=== PATIENT | female | born 1955 | race African-American/Black ===

== ENCOUNTER 2017-09-19 00:36 | Inpatient (IN) | payer OTHER ==
[2017-09-19 01:04] LABS: #Lymphocytes 1.4 thou/uL (1.20-3.40); #Monocytes 0.2 thou/uL (0.11-0.59); #Neutrophils 9.7 thou/uL (1.40-6.50); %Basophils 0.3 % (0.0-1.0); %Eosinophils 0.3 % (0.0-10.0); %Lymphocytes 12.1 % (21.0-51.0); %Monocytes 1.9 % (0.0-10.0); %Neutrophils 85.4 % (42.0-75.0); Hemoglobin 13.7 g/dL (12.0-16.0); Mean Corpuscular HGB CONC 32.6 g/dL (32.0-36.0); Mean Corpuscular Hemoglobin 28.4 pg (27.0-31.0); Mean Corpuscular Volume 87.1 fl (81.0-99.0); Platelet Count 229 thou/uL (130-400); RBC Distribution Width 11.7 % (11.5-14.5); Red Blood Cell (RBC) Count 4.83 mill/uL (4.20-5.40); White Blood Cell (WBC) Count 11.4 thou/uL (4.8-10.8)
[2017-09-19] MEDS ORDERED: Acetaminophen 325 MG Suppository ONE (01:05)
[2017-09-19] MEDS ORDERED: Acetaminophen 650 MG Suppository ONE (01:05)
[2017-09-19 01:08] LABS: Bilirubin Negative (Negative); Blood, Urine Negative (Negative); Clarity CLEAR (Clear); Glucose, Urine (Dipstick) >=1000 mg/dL (Negative); Leukocyte Negative (Negative); Nitrite Negative (Negative); Protein, Urine (Dipstick) Negative (Neg-Trace); Specific Gravity, Urine 1.036 (1.002-1.036); Urobilinogen 0.2 mg/dL (0.2-1.0)
[2017-09-19 01:17] LABS: Amphetamine Not Detected (NotDetected); Benzodiazepine Screen Not Detected (NotDetected); Cocaine Metabolite Screen Not Detected (NotDetected); Medtox Reader # READER 4; Methamphetamine Not Detected (NotDetected); Opiate Screen Not Detected (NotDetected); Phencyclidine (PCP) Not Detected (NotDetected); THC/Cannabinoid Screen Not Detected (NotDetected); Tricyclic Screen Not Detected (NotDetected)
[2017-09-19 01:18] LABS: Barbiturates Screen Not Detected (NotDetected); Medtox Control Line Valid? VALID (VALID); Methadone Not Detected (NotDetected); Oxycodone Screen Not Detected (NotDetected)
[2017-09-19 01:29] LABS: CKMB 0.5 ng/mL (0-6.6); Troponin I Less than 0.010 ng/mL (< 0.028)
[2017-09-19 01:35] LABS: ALT (SGPT) 19 U/L (8-55); AST (SGOT) 23 U/L (5-34); Albumin 4.3 g/dL (3.4-4.8); Alkaline Phosphatase 136 U/L (40-150); Anion Gap 20 mmol/L (10-20); BUN (Urea Nitrogen) 5 mg/dL (9.8-20.1); Bilirubin, Total 0.5 mg/dL (0.2-1.2); CK (CPK) 103 U/L (29-168); Calc. Creatinine Clearance 0 mL/min (70-130); Calcium 10.1 mg/dL (7.8-10.44); Carbon Dioxide 24 mmol/L (23-31); Chloride 95 mmol/L (98-107); Estimated GFR-MDRD 54; Globulin 3.9 g/dL (2.4-3.5); Glucose 595 mg/dL (80-115); Potassium 5.2 mmol/L (3.5-5.1); Protein, Total 8.2 g/dL (6.0-8.3); Sodium 134 mmol/L (136-145)
[2017-09-19] MEDS ORDERED: Insulin Regular 300 UNITS/3 ML VIAL ONE (01:42)
[2017-09-19] MEDS ORDERED: Piperacillin/Tazobactam 4.5 GM VIAL ONE (03:31)
[2017-09-19] MEDS ORDERED: cefTRIAXone\\ROCEPHIN 2 GM VIAL ONE (03:31)
[2017-09-19 03:44] LABS: Color Of CSF Supernatant COLORLESS (Colorless); Unspun CSF Color COLORLESS (Colorless)
[2017-09-19 03:45] LABS: Tube # 2
[2017-09-19 03:48] LABS: CSF, Glucose 281 mg/dl (40-70); CSF, Protein 44 mg/dL (15-40)
[2017-09-19] MEDS ORDERED: Acyclovir Sodium 1,000 MG in Sodium Chloride 0.9% 250 ML 250 ML IVPB SCH (04:00)
[2017-09-19 04:08] LABS: CSF Source CSF; Clarity Clear (Clear); Tube # 4
[2017-09-19 04:09] LABS: RBC Count - Manual 43 /cumm (None Seen); WBC/NonHematics Count - Manual 36 /cumm (0-5)
[2017-09-19 04:29] LABS: Cell Count Non Hematic 9 %; Lymphocytes 2 %; Segmented Neutrophils 89 %
[2017-09-19] MEDS ORDERED: Ampicillin 125 MG/5 ML VIAL SLOW IVP SCH (04:30)
[2017-09-19] MEDS ORDERED: Dextrose 50% Abboject 50 ML SYRINGE SLOW IVP PRN (04:36)
[2017-09-19] MEDS ORDERED: Dextrose 5% in Water 1,000 ML IV PRN (04:36)
[2017-09-19] MEDS ORDERED: Bisacodyl 5 MG TAB PO PRN (04:37)
[2017-09-19] MEDS ORDERED: Albuterol Sulfate 1.25 MG/3 ML NEB NEB SCH (04:45)
[2017-09-19 04:58] LABS: Lactic Acid 3.1 mmol/L (0.5-2.2)
[2017-09-19] MEDS ORDERED: Acetaminophen 1,000 MG in Premix Bag 1 BAG IVPB SCH (06:00)
[2017-09-19] MEDS: Sodium Chloride 0.9% 1,000 ML IV SCH ×2 (06:03→20:43)
--- NOTE | 2017-09-19 06:18 | HP ---
PRIMARY CARE PROVIDER: Dr. Lissa Medeiros. CHIEF COMPLAINT: Altered mental status. HISTORY OF PRESENT ILLNESS: Ms. Marcos is a 62-year-old lady who was seen at [facility] on 09/19/2017. The patient is unable to provide any significant history. History was obtained from patient's family members by the bedside, review of medical records and discussion with the emergency room physician. Ms. Marcos had sudden change in her mental status around noon yesterday. She reportedly was confus ed. In retrospect, her family members think that she may have had a gradual decline over the last 5 or 6 days. She has reportedly been urinating frequently over the last day. She also complained of h eadache and was disoriented. She also vomited yesterday. She got Aleve prior to arrival at the [facility] because she had fever. There is no history of any recent travel. There is no history of any chest pain or diarrhea. REVIEW OF SYSTEMS: Could not be completed secondary to patient's mental status. PAST MEDICAL HISTORY: Significant for diabetes mellitus, dyslipidemia, hypertension. PAST SURGICAL HISTORY: Bilateral cataract surgery and hysterectomy. FAMILY HISTORY: Unable to obtain because of patient's altered mental status. SOCIAL HISTORY: No history of tobacco use, alcohol use or recreational drug use. ALLERGIES: No known drug allergies. CURRENT MEDICATIONS: These are being clarified at the time of this dictation. PHYSICAL EXAMINATION: GENERAL: Ms. Marcos is sleepy, but arousable, not in acute distress. She had a T-max of 101.9 deg tomas in the emergency room. VITAL SIGNS: She has a blood pressure of 119/77, pulse of 97, respiratory rate of 19, and saturating 94% on room air. Earlier, she had pulse as high as 107 and a respiratory rate as high as 24. EYES: No scleral icterus. No conjunctival pallor. ENT: Moist mucosal membranes, no oropharyngeal erythema or exudates. NECK: Nontender, patient is able to move her neck and flex her neck without any difficulty. Trachea is midline. RESPIRATORY: Accessory muscles of breathing are not active. Chest wall movements are symmetric bila terally. LUNGS: Clear to auscultation without wheeze, rhonchi or crepitations. CARDIOVASCULAR: S1 and S2 are heard, regular. Peripheral pulses palpable. No carotid bruit, no per icardial rub. ABDOMEN: Soft, nontender, bowel sounds are heard, no hepatomegaly, no splenomegaly. NEUROLOGIC: Full neurologic examination not possible secondary to patient's noncooperation. Pupils are equal, reactive to light. No facial droop. Deep tendon reflexes are 2+, plantar reflexes downgo ing bilaterally. Meningeal signs could not be checked because of patient's noncooperation. MUSCULOSKELETAL: The patient is moving all 4 extremities spontaneously. SKIN: She has eczematous rash over the left forearm. No other rashes or subcutaneous nodules. LYMPHATIC: No cervical lymphadenopathy. PSYCHIATRIC: Unable to assess mood, affect or orientation to person, place or time. LABORATORY DATA: Ms. Marcos' labs and investigations were reviewed. I reviewed her electrocardiog lenny, which shows sinus tachycardia, no ST changes to suggest an acute coronary syndrome. I also revi ewed her chest x-ray, which does not show any pulmonary infiltrates. She also had a noncontrast CT s can of the brain, and the emergency room physician reports that it was unremarkable. She also had CS F studies sent. These are currently pending. She has leukocytosis with 11,400 white cells, of which 85% are neutrophils, normal hemoglobin, normal platelet count, decreased sodium of 134, elevated pot assium of 5.2, elevated creatinine of 1.22, normal anion gap, normal carbon dioxide, elevated lactic acid level of 4.2, elevated glucose of 595, unremarkable liver profile, normal troponin I, normal BNP , urinalysis positive for glucose and ketones, normal urine toxicology screen and elevated beta-hydro xybutyrate level of 0.69. ASSESSMENT AND PLAN: Ms. Marcos is a pleasant 62-year-old lady who was seen at [facility] on 09/19/2017. Her problem list includes: 1. Acute encephalopathy: Differential is wide. However, given altered mental status as well as sep sis, SQL DATA ARCHITECT infections appear to be a possibility. The patient has received acyclovir, Zosyn, ceftriaxo ne and vancomycin in the emergency room. I will continue her on vancomycin, ceftriaxone, acyclovir, and ampicillin. I will await cultures and cerebrospinal fluid studies. 2. Sepsis: The patient's presentation meets the criteria for sepsis, suspected source of infection either bloodstream or SQL DATA ARCHITECT. We will treat her with intravenous fluid resuscitation as well as antibio tics. 3. Diabetes mellitus: Appears to be poorly controlled. I will start patient on insulin sliding sca le. The patient has received insulin from emergency room physician. 4. Hyponatremia: Mild, unlikely to be the etiology of patient's symptoms. Provide hydration and re check. 5. Hyperkalemia: Mild. Provide beta agonist nebulizer, recheck. 6. Lactic acidosis: Most likely secondary to sepsis. Recheck lactate level after IV fluid resuscit ation. 7. Hypertension: Monitor vital signs, titrate antihypertensives as needed. Many thanks for allowing me to participate in Ms. Marcos' care. Please feel free to contact me wit h any questions or concerns. LEVEL OF RISK: High. LEVEL OF COMPLEXITY: High.
[2017-09-19] MEDS: Ampicillin 2 GM in Sodium Chloride 0.9% 100 ML IVPB SCH ×5 (06:25→20:27)
[2017-09-19 06:45] VITALS: BMI 31.5
[2017-09-19] MEDS: HumaLOG 300 UNITS/3 ML VIAL SC PRN ×2 (06:56→20:29)
--- NOTE | 2017-09-19 08:18 | CT ---
PRELIMINARY REPORT/[facility]/EMERGENCY AFTER HOURS PROCEDURE: EXAM: CT Head Without Intravenous Contrast EXAM DATE/TIME: 09/19/2017 1:20 AM CLINICAL HISTORY: 62 years old, female; Signs and symptoms; Altered mental status/memory loss; Confusion or disorientat ion; Patient HX: Patient presents for AMS. Family believes it is her blood sugar; Additional info: *p t combative for exam* scan done helical due to PT constantly moving TECHNIQUE: Axial computed tomography images of the head/brain without intravenous contrast. COMPARISON: No relevant prior studies available. FINDINGS: Limited secondary to motion artifact. Brain: Mild volume loss No hemorrhage. Mild white matter disease. No edema. Ventricles: Normal. No ventriculomegaly. Bones/joints: Normal. No acute fracture. Sinuses: Air-fluid level and mucosal thickening in the right sphenoid sinus Mastoid air cells: Normal as visualized. No mastoid effusion. Soft tissues: Normal. IMPRESSION: Question right sphenoid sinusitis No definite acute intracranial hemorrhage Thank you for allowing us to participate in the care of your patient. Dictated and Authenticated by: Jarod Ren MD 09/19/2017 1:49 AM Central Time ([place] & [place]) FINAL REPORT EMERGENCY AFTER HOURS BRAIN CT WITHOUT IV CONTRAST: Date: 09/19/17 Time: 0124 hours FINDINGS/IMPRESSION: There is motion artifact. Right sphenoid sinus mucosal disease. No mass or bleed, or other acute proc ess. Some atrophy and chronic white matter ischemic change. Report in agreement with preliminary report given on-call by Elier. POS: [facility]
[2017-09-19] MEDS: Vancomycin HCl 1.5 GM in Sodium Chloride 0.9% 250 ML 300 ML IVPB SCH (08:52)
[2017-09-19] MEDS: Enoxaparin Sodium 40 MG/0.4 ML SYRINGE SC SCH (08:54)
--- NOTE | 2017-09-19 10:31 | RAD ---
UPRIGHT PORTABLE CHEST 1 VIEW: Date: 09/19/17 HISTORY: 62-year-old female with history of altered mental status. FINDINGS: There is rotation to the left. Monitor leads overlie the chest. Horizontal linear parenchymal changes noted in both bases, having more the appearance of some chronic change or minimal subsegmental atele ctasis. No confluent pneumonia or overt edema. IMPRESSION: Horizontal linear parenchymal changes in the bases, having more of an old appearance or subsegmental atelectasis. No confluent pneumonia. No old studies. POS: [facility]
--- NOTE | 2017-09-19 14:00 | CON ---
DATE OF CONSULTATION: 09/19/2017 HISTORY OF PRESENT ILLNESS: Ms. Marcos is a very pleasant woman, but unable to give a history. He r family was in the room and provided her history. She has been admitted to the Intermediate Care Unit. She has a history of becoming confused yesterday. The family feels that this has been slowly progressing over the last week. She also had a little bit of a headache and vomited. She had fever prior to admission and has had fever here. PAST MEDICAL HISTORY: Remarkable for diabetes, lipid disorder, hypertension, cataract surgery, and h ysterectomy. SOCIAL HISTORY: She is a nonsmoker, nondrinker, nondrug user. ALLERGIES: She has no drug allergies. FAMILY HISTORY: Negative for lung disease at an early age. REVIEW OF SYSTEMS: Otherwise not obtainable. PHYSICAL EXAMINATION: VITAL SIGNS: Temperature is up to 102 this morning; heart rate is 88; respiratory rate is 19; oximet ry is 95% on room air, it was actually 100% on room air when I was in the room; with her blood pressu re of 148/64. She was actually sitting on the side of the bed, was able to assist in getting back in bed, although I had to pull her back and up in the mattress. HEENT: Her pupils react. Sclerae is anicteric. Extraocular movements appear full. NECK: Supple, no lymphadenopathy. LUNGS: Clear. HEART: Regular rhythm. S1 and S2 are normal. ABDOMEN: Soft and nontender. EXTREMITIES: Without clubbing, cyanosis, or edema. NEUROLOGIC: Grossly nonfocal. LABORATORY AND X-RAY FINDINGS: Lab work is not really too helpful. Her white count is 11.4, hemoglo bin 13.7, platelets 229. Electrolytes were normal. She has been hyperglycemic, but glucose of 595 t ypically does not create an encephalopathy. She did have a spinal tap, CSF had a white count of 36, RBC of 43, 89 segs. Glucose was 281 in the C SF, which is about a little less than half of the serum. Total protein was 44, which was sparingly e levated. IMPRESSION: Encephalopathy with fever of unclear etiology. Chest radiograph, reviewed by me, is juli ar. She has a benign abdominal exam. Preliminary culture on her spinal fluid is negative. I will b e happy to follow along with the other physicians caring for her and broad antimicrobial therapy appe ars to be appropriate. I met with the family and answered all their questions. A 50-minute consult, greater than 50% of the time spent on the unit coordinating care.
[2017-09-19] MEDS: Acyclovir Sodium 730 MG in Sodium Chloride 0.9% 250 ML 250 ML IVPB SCH ×2 (14:48→22:02)
[2017-09-19] MEDS: cefTRIAXone\\ROCEPHIN 2 GM in Sodium Chloride 0.9% 100 ML IVPB SCH (16:13)
[2017-09-20] MEDS: Ampicillin 2 GM in Sodium Chloride 0.9% 100 ML IVPB SCH ×6 (01:08→21:35)
[2017-09-20] MEDS: cefTRIAXone\\ROCEPHIN 2 GM in Sodium Chloride 0.9% 100 ML IVPB SCH ×2 (03:05→13:55)
[2017-09-20] MEDS: Sodium Chloride 0.9% 1,000 ML IV SCH ×2 (03:08→21:37)
[2017-09-20] MEDS: Acyclovir Sodium 730 MG in Sodium Chloride 0.9% 250 ML 250 ML IVPB SCH ×3 (05:13→22:46)
[2017-09-20] MEDS: HumaLOG 300 UNITS/3 ML VIAL SC PRN ×3 (05:23→18:00)
[2017-09-20 05:50] LABS: #Basophils 0.1 thou/uL (0.0-0.2); #Eosinphils 0.2 thou/uL (0.0-0.7); #Lymphocytes 2.8 thou/uL (1.20-3.40); #Monocytes 0.4 thou/uL (0.11-0.59); #Neutrophils 6.2 thou/uL (1.40-6.50); %Basophils 0.7 % (0.0-1.0); %Eosinophils 2.4 % (0.0-10.0); %Lymphocytes 28.8 % (21.0-51.0); %Monocytes 3.8 % (0.0-10.0); %Neutrophils 64.3 % (42.0-75.0); Hemoglobin 11.7 g/dL (12.0-16.0); Mean Corpuscular HGB CONC 32.6 g/dL (32.0-36.0); Mean Platelet Volume 8.9 fL (7.4-10.4); Platelet Count 198 thou/uL (130-400); RBC Distribution Width 11.9 % (11.5-14.5); Red Blood Cell (RBC) Count 4.02 mill/uL (4.20-5.40); White Blood Cell (WBC) Count 9.6 thou/uL (4.8-10.8)
[2017-09-20 06:33] LABS: Anion Gap 11 mmol/L (10-20); BUN (Urea Nitrogen) Less than 4 mg/dL (9.8-20.1); Calc. Creatinine Clearance 88 mL/min (70-130); Calcium 8.4 mg/dL (7.8-10.44); Carbon Dioxide 24 mmol/L (23-31); Chloride 108 mmol/L (98-107); Estimated GFR-MDRD Greater than 90; Glucose 310 mg/dL (80-115); Potassium 3.2 mmol/L (3.5-5.1); Sodium 140 mmol/L (136-145)
[2017-09-20] MEDS: Vancomycin HCl 1.5 GM in Sodium Chloride 0.9% 250 ML 300 ML IVPB SCH (08:28)
[2017-09-20] MEDS: Enoxaparin Sodium 40 MG/0.4 ML SYRINGE SC SCH (08:28)
--- NOTE | 2017-09-20 11:33 | PRG ---
DATE OF SERVICE: 09/20/2017 Ms. Marcos does not remember the last 2 days. PHYSICAL EXAMINATION: VITAL SIGNS: She is afebrile, heart rate 64, respiratory rate 18, oximetry 95, blood pressure 167/66 . HEAD AND NECK: Unremarkable. NECK: Supple. LUNGS: Clear. HEART: Regular rhythm. S1 and S2 are normal. ABDOMEN: Soft and nontender. EXTREMITIES: Without clubbing, cyanosis, or edema. NEUROLOGIC: Nonfocal. LABORATORY DATA: White count 9.6, hemoglobin 11.7, platelets 198. Sodium 140, potassium 3.2, chlori de 108, bicarbonate 24, BUN less than 4, creatinine 0.75, glucose 310 down to 271 at 10:41. CSF cult ures are negative at 24 hours. IMPRESSION: 1. Encephalopathy ? viral meningitis. 2. Diabetes out of control, but not really so out of control she would have a hyperosmolar state, le ading to her encephalopathy. 3. Lipid disorder. 4. Hypertension. 5. History of cataract surgery and hysterectomy. PLAN: She is stable to move out of the Critical Care Unit/Intermediate Care Unit. We will sign off.
[2017-09-20] MEDS ORDERED: Ketorolac Tromethamine 30 MG/ML VIAL IVP PRN (21:27)
[2017-09-20] MEDS ORDERED: Ketorolac Tromethamine 30 MG/ML VIAL IVP SCH (21:30)
[2017-09-21] MEDS: Ampicillin 2 GM in Sodium Chloride 0.9% 100 ML IVPB SCH ×3 (01:31→10:02)
[2017-09-21] MEDS: Sodium Chloride 0.9% 1,000 ML IV SCH (03:30)
[2017-09-21] MEDS: cefTRIAXone\\ROCEPHIN 2 GM in Sodium Chloride 0.9% 100 ML IVPB SCH (04:23)
[2017-09-21 05:28] LABS: Hemoglobin A1c 15.3 % (4.0-6.0)
[2017-09-21] MEDS: HumaLOG 300 UNITS/3 ML VIAL SC PRN (06:01)
[2017-09-21] MEDS: Acyclovir Sodium 730 MG in Sodium Chloride 0.9% 250 ML 250 ML IVPB SCH (07:20)
[2017-09-21 08:06] LABS: Vancomycin, Trough 5.5 ug/mL
[2017-09-21] MEDS: Vancomycin HCl 1.5 GM in Sodium Chloride 0.9% 250 ML 300 ML IVPB SCH (10:02)
[2017-09-21] MEDS: Enoxaparin Sodium 40 MG/0.4 ML SYRINGE SC SCH (10:02)
[2017-09-21 11:34] VITALS: BP 196/76; TEMP 99
--- NOTE | 2017-09-21 12:44 | PDOC.PN ---
- Subjective Encounter Start Date: 09/20/17 Encounter Start Time: 14:00 -: old records requested/rev Pt seen and examined, chart reviewed in its entirety. This is my first visit with this patient follow up for AMS, positive CSF, severe sepsis Afebrile, VSS. no N/V/d/C, minimal headache, MS back to baseline. recalls events form prior day, no acute events overnight Antonina abx well All systems reviewed and neg x as above - Objective MAR Reviewed: Yes Vital Signs & Weight: Vital Signs (12 hours) Temp Pulse Resp BP BP Pulse Ox 09/21/17 11:33 99.0 F 66 196/76 H 96 09/21/17 08:00 98.6 F 64 18 09/21/17 07:38 98.6 F 64 179/69 H 97 09/21/17 04:00 99.3 F 69 16 176/78 H 94 L Weight Weight 165 lb 1.6 oz I&O: 09/20/17 09/21/17 09/22/17 06:59 06:59 06:59 Intake Total 3890 3790 Output Total 3250 650 Balance 640 3140 Result Diagrams: 09/20/17 05:07 09/20/17 05:07 Additional Labs: Accuchecks 09/21/17 09/21/17 09/20/17 10:30 06:02 20:52 POC Glucose 252 H 240 H 225 H 09/20/17 16:56 POC Glucose 284 H Phys Exam - Physical Examination Constitutional: NAD HEENT: PERRLA, moist MMs, sclera anicteric, oral pharynx no lesions Neck: no nodes, no JVD, supple, full ROM Respiratory: no wheezing, no rales, no rhonchi, clear to auscultation bilateral Cardiovascular: RRR, no significant murmur, no rub Gastrointestinal: soft, non-tender, no distention, positive bowel sounds Musculoskeletal: no edema, pulses present Neurological: non-focal, normal sensation, moves all 4 limbs Lymphatic: no nodes Psychiatric: normal affect, A&O x 3 Skin: no rash, normal turgor, cap refill <2 seconds Dx/Plan - Plan cont current plan of care, continue antibiotics, out of bed/ambulate * . cx neg. CSF drawn either later and doenst fit with bacterial meningitis except fordifferntial or early and hard to interpret. Will continue abx, watch overnight, and if cx still neg, let go home in the morning
--- NOTE | 2017-09-21 13:00 | DIS ---
DATE OF ADMISSION: 09/19/2017 DATE OF DISCHARGE: 09/21/2017 PRIMARY CARE PHYSICIAN: Dr. Lissa Medeiros DISCHARGE DIAGNOSES: 1. Viral meningitis, presumed. 2. Severe sepsis, present on admission and resolved. 3. Diabetes mellitus type 2 with hyperglycemia and without ketosis. 4. Metabolic encephalopathy, resolved. 5. Hypertension, essential. CONSULTATIONS: Dr. Prakash Nolasco on 09/19/2017. PROCEDURES: None. HISTORY AND PHYSICAL: Ms. Marcos is a 62-year-old female who presented to the emergency department on 09/19/2017 after becoming altered in her mental state. She says she woke up normally that erika solares, was doing normal activity and running around with her family. In retrospect, the family said she may have had a gradual decline over a 5-6 day status. On the day of admission, she was feeling prett y normal and has a good recollection of that day and then around 2 o'clock just started realizing she was not thinking clearly. She was having increasing polyuria and polydipsia. She was disoriented a nd vomiting x1 one day prior to admission. She had some fever at home and so was brought to the [facility] department for evaluation. Workup in the ER showed a white count of 11.4 with 85% granulocytes, normal platelet count. She had a creatinine of 1.22, glucose of 595, positive glucose and ketones in the urine. Serum beta hydroxy urine level of 0.69. We were subsequently consulted for admission. HOSPITAL COURSE: The patient was seen and examined by Dr. New. The patient received acyclovir, Zo syn, Rocephin and vancomycin in the emergency department. He continued her on therapy for community- acquired meningitis with acyclovir, vancomycin, ceftriaxone, ampicillin. CSF cultures were obtained. CSF did show a white count of 38 with a 92% granulocytes, elevated glucose and a slightly elevated protein. Overnight from 09/19/2017 to 09/20/2017, the patient improved. I picked her up on 09/20/2017 at whic h point she was mentating normally. She denies any headache or change in her vision, hearing, taste or smell and was tolerating the antibiotics. Culture remained negative. Due to the abrupt onset of her illness and possibility of an early spinal fluid being obtained, she was watched again overnight. Today, her spinal fluid cultures were negative at greater than 48 hours. Her mental status was nor mal. She has been afebrile. White count was normal and the sepsis resolved. She was subsequently s table for discharge with outpatient followup. Incidentally, her hemoglobin A1c was 15.3 and this was shared with the patient to follow up with her primary doctor. PHYSICAL EXAMINATION: The patient was seen and examined on the day of discharge. Discharge plan and disposition was discussed with the patient face to face at bedside with her family . DISCHARGE MEDICATIONS: We will resume home medications. 1. Lipitor 20 mg p.o. at bedtime. 2. Vitamin D3 400 units p.o. daily. 3. Glimepiride 4 mg p.o. q.a.m. 4. Lisinopril/HCTZ 20/12.5 p.o. daily. 5. Metformin 1000 mg p.o. b.i.d. 6. Pioglitazone 15 mg daily. DISCHARGE CONDITION: Stable. DISPOSITION: Being discharged home via private vehicle with outpatient followup with her primary car e physician. FOLLOWUP APPOINTMENTS: PCP within a week. They have an appointment actually for tomorrow. DISCHARGE DIET: Heart healthy diabetic diet strictly recommended. DISCHARGE ACTIVITY: As tolerated.
[2017-09-21] MEDS ORDERED: Vancomycin HCl 1 GM in Premix Bag 1 BAG IVPB SCH (21:00)
== END 2017-09-21 14:10 | disposition home or self-care (01) | DRG 871 ==
LOC: ERS 00:36 → IMCU/EMU 05:14
PROVIDERS: ADMIT Internal Medicine; ATTEND Internal Medicine
DX: A41.89 Other specified sepsis (principal); G93.40 Encephalopathy, unspecified; E87.1 Hypo-osmolality and hyponatremia; E87.2 Acidosis; A87.9 Viral meningitis, unspecified; E11.65 Type 2 diabetes mellitus with hyperglycemia; E87.5 Hyperkalemia; E78.5 Hyperlipidemia, unspecified; I10 Essential (primary) hypertension
CPT/HCPCS: 36415; 36416; 51701; 62270; 70450; 71045; 80048; 80053; 80202; 80306; 81003; 82010; 82550; 82553; 82945; 83036; 83605; 83880; 84157; 84484; 85025; 85060; 87040; 87070; 87086; 87205; 89051; 93005; 94640; 96361; 96365; 96367; 96374; 96375; 99292; A4353; J0133; J0290; J0696; J1815; J2543; J3370; J7050

== ENCOUNTER 2018-02-08 13:47 | Outpatient (CLI) | payer MEDICARE ==
--- NOTE | 2018-02-08 17:13 | BD ---
DEXA BONE MINERAL DENSITY STUDY: Date: 02/08/18 HISTORY: Osteoporosis screening. COMPARISON: None. FINDINGS: Femoral Neck: 0.774 T-Score: -0.7 Z-Score: 0.8 Total Femur: 0.938 T-Score: 0.0 Z-Score: 1.2 WHO Classification: Normal. Lumbar Spine: BMD (g/cm2) L1 0.773 T-Score: -2.0 Z-Score: -0.4 L2 0.878 T-Score: -1.4 Z-Score: 0.4 L3 0.893 T-Score: -1.7 Z-Score: 0.1 L4 0.812 T-Score: -2.3 Z-Score: -0.4 L1-L4 0.838 T-Score: -1.9 Z-Score: -0.1 WHO Classification: Osteopenia. 10 YEAR FRACTURE RISK: Major osteoporotic fracture: 7.2% Hip fracture: 0.4% IMPRESSION: Osteopenia of the lumbar spine with fracture risk as above. POS: [facility]
== END 2018-02-08 13:48 | disposition home or self-care (01) ==
LOC: BICMAMMO 13:47
PROVIDERS: ATTEND Family Medicine
DX: Z12.31 Encounter for screening mammogram for malignant neoplasm of breast (principal); Z13.820 Encounter for screening for osteoporosis; M85.88 Other specified disorders of bone density and structure, other site
CPT/HCPCS: 77063; 77067; 77080

== ENCOUNTER 2018-10-20 21:27 | Observation (INO) | payer MEDICARE ==
[~2018-10-20 21:27] MED LIST: Iopamidol 370 76% 100 ML VIAL ONE
[2018-10-20 21:49] LABS: #Basophils 0.1 thou/uL (0.0-0.2); #Eosinphils 0.1 thou/uL (0.0-0.7); #Lymphocytes 3.5 thou/uL (1.20-3.40); #Monocytes 0.4 thou/uL (0.11-0.59); #Neutrophils 3.8 thou/uL (1.40-6.50); %Basophils 0.9 % (0.0-1.0); %Eosinophils 1.5 % (0.0-10.0); %Lymphocytes 44.1 % (21.0-51.0); %Neutrophils 48.5 % (42.0-75.0); Hemoglobin 13.3 g/dL (12.0-16.0); Mean Corpuscular HGB CONC 32.8 g/dL (32.0-36.0); Mean Corpuscular Hemoglobin 28.8 pg (27.0-31.0); Mean Corpuscular Volume 87.8 fL (78.0-98.0); Mean Platelet Volume 9.4 fL (7.4-10.4); Platelet Count 220 thou/uL (130-400); RBC Distribution Width 11.9 % (11.5-14.5); Red Blood Cell (RBC) Count 4.62 mill/uL (4.20-5.40); White Blood Cell (WBC) Count 7.9 thou/uL (4.8-10.8)
[2018-10-20 21:55] LABS: INR-International Normal Ratio 0.9; PTT 28.5 SEC (22.9-36.1); Prothrombin Time 12.4 SEC (12.0-14.7)
--- NOTE | 2018-10-20 21:56 | CT ---
Exam: Head CT without contrast HISTORY: Level 1 stroke. Last seen normal at 8:00 PM. Right-sided facial droop. Altered mental status . COMPARISON: 09/19/2017 FINDINGS: Hemorrhage: No intraparenchymal hemorrhage or extra-axial hematoma. Brain parenchyma: Cortical nicolas-white matter differentiation is preserved. No mass effect or midline shift. Basilar cisterns are patent.Chronic small vessel ischemic changes of the white matter are noted. Ventricular system: Ventricles and sulci are patent and symmetric. Calvarium: Intact. Sinuses and mastoid air cells: Adequate aeration. IMPRESSION: No acute intracranial process. Results of study discussed with Dr. Berry 10/20/2018 at 9:53 PM Code CR
[2018-10-20 22:01] LABS: ALT (SGPT) 16 U/L (8-55); AST (SGOT) 10 U/L (5-34); Albumin 4.3 g/dL (3.4-4.8); Alkaline Phosphatase 140 U/L (40-150); Anion Gap 16 mmol/L (10-20); BUN (Urea Nitrogen) 9 mg/dL (9.8-20.1); Bilirubin, Total 0.4 mg/dL (0.2-1.2); CK (CPK) 128 U/L (29-168); Calc. Creatinine Clearance 0 mL/min (70-130); Calcium 10.1 mg/dL (7.8-10.44); Carbon Dioxide 25 mmol/L (23-31); Chloride 96 mmol/L (98-107); Estimated GFR-MDRD 48; Globulin 3.4 g/dL (2.4-3.5); Potassium 3.8 mmol/L (3.5-5.1); Protein, Total 7.7 g/dL (6.0-8.3); Sodium 133 mmol/L (136-145)
[2018-10-20 22:05] LABS: Glucose 643 mg/dL (80-115)
--- NOTE | 2018-10-20 22:10 | RAD ---
Exam: Chest one view HISTORY:Right-sided facial droop. Eval for CVA. Comparison: 09/19/2017 FINDINGS: Cardiac silhouette: Normal Pulmonary vessels: Normal Costophrenic angles: Clear LUNGS: No masses or consolidation. Chronic changes of the lung bases. Pneumothorax: None Osseous abnormalities: None IMPRESSION: No acute cardiopulmonary process.
[2018-10-20 22:18] LABS: Bicarbonate (HCO3v) 27.2 mmol/L (22.0-28.0); Calcium, Ionized 1.07 mmol/L (See Comments:); Chloride 97 mmol/L (98-107); Hemoglobin - Calc 14.4 g/dL (12.0-16.0); Sodium 133 mmol/L (138-145); T. Carbon Dioxide 28.6 mmol/L (22.0-28.0); vO2 Saturation-calc 68.7 % (60.0-85.0)
--- NOTE | 2018-10-20 22:20 | CT ---
Exam: Postcontrast head CT Postcontrast soft tissue neck CT CT angiogram of the head CT angiogram the neck HISTORY: Right-sided facial droop. Altered mental status. Last seen normal at 8:00 PM TECHNIQUE: CT angiogram of the head and neck are performed in the axial plane. Three-dimensional refo rmatted images are submitted for interpretation. FINDINGS: Postcontrast head CT: Cortical nicolas-white matter differentiation is preserved. Postcontrast soft tissue neck CT: Bilateral orbits are unremarkable. Adequate aeration of the visuali zed paranasal sinuses. Aerodigestive tract is patent. No mucosal abnormality. Midline fatty raphae of the tongue is preserve d. Unremarkable epiglottis. Preepiglottic fat is preserved. Symmetric attenuation of the parotid and submandibular glands. Symmetric attenuation of the sternocle idomastoid muscles Thyroid gland is unremarkable No evidence of lymphadenopathy by size criteria Cervical spine vertebral body height is maintained. No fracture. No evidence of high-grade central c anal stenosis. No evidence of high-grade neural foraminal narrowing. Degenerative changes throughout the cervical spine as noted Presumed chronic changes in the visualized lung parenchyma. Component of edema cannot be excluded. Up per mediastinum is unremarkable CT ANGIOGRAM: There is appropriate enhancement and luminal diameter the aortic arch. CT angiogram the neck: Right carotid: Innominate artery origin, common carotid artery, carotid bifurcation and internal [place] artery of appropriate enhancement and luminal diameter. Left carotid: The left carotid artery origin, common carotid artery, carotid bifurcation and internal carotid artery have appropriate enhancement and luminal diameter. Cervical vertebral arteries are patent throughout their course of the neck. Vertebral arteries are es sentially codominant. Visualized subclavian arteries are patent and symmetric. CT angiogram of the head: Distal cervical and intracranial internal carotid arteries have symmetric e nhancement and luminal diameter. Minimal atherosclerosis involving bilateral cavernous segments. Anterior circulation: Symmetric enhancement and luminal diameter of the A1 and M1 segments. Symmetric enhancement and luminal diameter of the proximal A2 segments and proximal MCA branches. Posterior circulation PICA artery origins are unremarkable. Both vertebral arteries supply a normal a ppearing basilar artery. Bilateral P1 segments have symmetric enhancement and luminal diameter IMPRESSION: 1. No evidence of significant stenosis in either cervical carotid artery, based upon NASCET criteria 2. Unremarkable CT angiogram of the [place]. There is no evidence of significant stenosis. Results study discussed with Dr. Berry 10/20/2018 at 10:19 PM Code CR Transcribed Date/Time: 10/20/2018 10:49 PM
[2018-10-20 22:28] LABS: Phosphorus 4.2 mg/dL (2.3-4.7)
[2018-10-20 22:42] LABS: Bilirubin Negative (Negative); Blood, Urine Negative (Negative); Clarity Clear (Clear); Glucose, Urine (Dipstick) Greater than 1000 mg/dL (Negative); Leukocyte Negative Leu/uL (Negative); Nitrite Negative (Negative); Protein, Urine (Dipstick) Negative (Neg-Trace); Urobilinogen Normal mg/dL (Less than 2)
[2018-10-20] MEDS ORDERED: Acetaminophen 500 MG TAB ONE (23:30)
[2018-10-20] MEDS ORDERED: Labetalol HCl 100 MG/20 ML VIAL ONE (23:37)
[2018-10-21] MEDS ORDERED: Insulin Regular 300 UNITS/3 ML VIAL ONE (00:12)
[2018-10-21] MEDS ORDERED: Labetalol HCl 100 MG/20 ML VIAL ONE (00:38)
[2018-10-21] MEDS ORDERED: HumaLOG 300 UNITS/3 ML VIAL SC PRN (00:43)
[2018-10-21] MEDS ORDERED: Dextrose 50% Abboject 50 ML SYRINGE SLOW IVP PRN (00:43)
[2018-10-21] MEDS ORDERED: Dextrose 5% in Water 1,000 ML IV PRN (00:43)
[2018-10-21] MEDS ORDERED: Labetalol HCl 100 MG/20 ML VIAL SLOW IVP PRN (00:52)
[2018-10-21 01:05] LABS: Troponin I 0.015 ng/mL (< 0.028)
[2018-10-21] MEDS ORDERED: Ondansetron PF 4 MG/2 ML Vial IVP PRN (02:00)
--- NOTE | 2018-10-21 03:00 | HP ---
PRIMARY CARE PHYSICIAN: None reported. CODE STATUS: Full code. TIME OF EVALUATION: 12:10 am. CHIEF COMPLAINT: Confusion and right-sided facial droop. HISTORY OF PRESENT ILLNESS: This is a 63-year-old female patient with past medical history of diabetes, hypertension. The patient went to a constitution party earlier tonight and was eating some cakes and cokes and around 08:00 p.m., the patient started to become very confused, likely secondary to increase in blood sugar. The patient had blood sugar of around 600. The patient had not taken medications today for diabetes or blood pressure. The patient also was found to have very high blood pressure and arrived to the hospital being confused, disoriented, very weak, also was reported that the patient had right-sided facial droop and slurred speech during the initial episode. These symptoms have been improving as per the daughter, who was at bedside. Symptoms were severe. REVIEW OF SYSTEMS: Unable to obtain as the patient is confused. PAST MEDICAL HISTORY: Positive for diabetes, hyperlipidemia, hypertension. PAST SURGICAL HISTORY: Bilateral cataract surgery, hysterectomy. SOCIAL HISTORY: No alcohol. No drugs. No smoking history. KNOWN ALLERGIES: No known drug allergies. REPORTED MEDICATIONS: 1. Vitamin D3. 2. Metformin. 3. Glimepiride. 4. Atorvastatin. 5. Lisinopril. PHYSICAL EXAMINATION: VITAL SIGNS: On presentation, blood pressure 194/111 with heart rate of 102, respiratory rate was 18, temperature 98.1, oxygen saturation 98% on room air. GENERAL APPEARANCE: The patient is oriented, not in acute distress. HEENT: Normal conjunctivae. Moist oral mucosa. Anicteric. No JVD. RESPIRATORY: Bilateral air entry. No rales or wheezes. Symmetric expansion. CARDIOVASCULAR: Normal rate. Regular rhythm. No murmurs. No gallop. No edema. ABDOMEN: Soft. Normal bowel sounds. MUSCULOSKELETAL: Baseline range of motion and strength. SKIN: Warm, intact. No pallor. No rash. No redness. Capillary refill seems to be intact. NEUROLOGIC: No evidence of any new focal weakness. The patient is confused. The facial droop has improved, also slurred speech. PSYCHIATRIC: Unable to fully explore as the patient is confused. DIAGNOSTIC DATA: EKG was reviewed. The patient has sinus tachycardia at the rate of 112. Brain CT, no acute intracranial process. CT angio, no evidence of significant stenosis in either cervical carotid artery based upon NASCET criteria. Unremarkable CT angio of the [place]. Chest x-ray was done, the patient has no acute cardiopulmonary process. LABORATORY DATA: Labs were done. The patient has white count 7.9, hemoglobin 13.3, MCV 87.8, platelet count 220. Coagulation; PT 12.4, INR 0.9, PTT 28.5. Blood gas, VBG was done. The pH was 7.36, pCO2 of 48. Chemistry; sodium 133, potassium 3.8, chloride 96, carbon dioxide 25, anion gap 16, BUN 9, creatinine 1.35, previous creatinine was 0.75, GFR 48, the previous one was normal. Glucose 643, the repeat one was 432 after 2 L of fluids. Calcium 10.1, phosphorus 1.2, magnesium 2.0. LFTs were normal. Troponin was negative x2. UA was done with glucosuria. Beta-hydroxybutyrate was negative. ASSESSMENT AND PLAN: The patient will be placed in the hospital with following medical problems: 1. Acute encephalopathy, seems to be metabolic, likely secondary to hyperglycemia, although there might be also possibility for relationship with high blood pressure. The patient is receiving treatment for the underlying conditions. 2. Uncontrolled diabetes. The patient went to a constitution party, did not take insulin, was drinking soda and eating cakes as per her , the patient has been started on insulin and received some IV fluids. There is no DKA. We will continue to monitor and treat accordingly. 3. Acute kidney injury. The patient has an increase in creatinine more than 0.3 mg/dL compared with previous creatinine. The patient is receiving IV fluids. We will continue to monitor kidney function, if not improving, might need Nephrology for assistance. 4. Possible transitory ischemic attack. The patient has some slurred speech and right-sided drooping as described by family, although this might be secondary to hyperglycemia, the patient does have risk for stroke, and blood pressure on presentation was very high. We will do a stroke protocol. We will follow and treat accordingly. 5. Hypertensive emergency on presentation. The patient presented with neurological symptoms and has been in better control. We will continue to use p.r.n. medication to control her blood pressure. We will not drop too much since the patient presented with stroke-like symptoms and drop in the blood pressure more might worsen the possible underlying stroke. We will follow recommendations. 6. Hyperlipidemia, low-cholesterol diet is advised. 7. Deep venous thrombosis prophylaxis. Job ID: [id number]
[2018-10-21 03:40] VITALS: BMI 31.4
[2018-10-21] MEDS ORDERED: Aspirin Chewable 81 MG TAB PO SCH (04:15)
[2018-10-21 04:45] LABS: Cardiac Risk 3.7 (Less than 4.5)
[2018-10-21 04:48] LABS: Troponin I Less than 0.010 ng/mL (< 0.028)
[2018-10-21] MEDS: HumaLOG 300 UNITS/3 ML VIAL SC PRN ×4 (06:22→20:16)
[2018-10-21] MEDS: Lisinopril/Hydrochlorothiazide 20 mg/12.5 mg Tablet PO SCH (08:33)
--- NOTE | 2018-10-21 11:52 | MRI ---
MRI BRAIN WITHOUT CONTRAST: INDICATION: TIA. Right facial droop. Altered mental status. FINDINGS: There is no acute territorial infarction, intracranial mass effect, or midline shift. There is mild parenchymal atrophy with compensatory dilatation of the ventricular system. Moderate chronic ischemi c disease is present involving the cerebral white matter. No hemorrhagic susceptibility is seen intr acranially. There is scattered paranasal sinus mucosal thickening notably right major sphenoid air cell. There i s susceptibility artifact of the left face limiting visualization of this region. IMPRESSION: 1. No acute territorial infarction or mass effect. 2. Moderate chronic ischemic disease of the cerebral white matter. POS: [facility]
--- NOTE | 2018-10-21 12:46 | CON ---
DATE OF CONSULTATION: 10/21/2018 CHIEF COMPLAINT: Confusion and possible stroke. HISTORY OF PRESENT ILLNESS: The patient could not recall the events from yesterday and most of the history was obtained from the chart. The patient is a 63-year-old lady with previous medical history of diabetes and hypertension. She was at a family reunion last night or October 20 and was eating some cake and drank Coke around 8:00 p.m., then she started to become very confused, likely due to high blood sugar. Her blood sugar was 653 on admission. Per chart, the patient's daughter informed the ER physician that the patient has not been taking her diabetic or hypertension medications lately and she was disoriented yesterday and not much conversation happened yesterday, but today she is more oriented, was able to give some medical history. The patient reports she felt off balance and she did not feel dizzy or weak and there is no visual problems or swallowing difficulty and no loss of consciousness. PREVIOUS MEDICAL HISTORY: Positive for diabetes, hypertension, and hyperlipidemia. PAST SURGICAL HISTORY: She had bilateral cataract surgery and hysterectomy more than 20 years ago. ALLERGIES: NO KNOWN DRUG ALLERGIES. SOCIAL HISTORY: She lives with her . Does not smoke or drink alcohol. FAMILY HISTORY: Her mom at 60 from colon cancer. Father in his 60s as well from cancer. She has 3 brothers and 3 sisters, diabetes runs in her family. MEDICATIONS: From home, she takes; 1. Metformin. 2. Glimepiride. 3. Atorvastatin. 4. Lisinopril. 5. Vitamin D3. REVIEW OF SYSTEMS: PULMONARY: Negative for shortness of breath or cough. GI: Negative for nausea, vomiting, or diarrhea. HEMATOLOGIC: Negative for anemia or bleeding diathesis. DERMATOLOGIC: Negative for any rash. NEUROLOGICAL: Positive for dizziness. OPHTHALMOLOGIC: Negative for any vision problems. PHYSICAL EXAMINATION: GENERAL APPEARANCE: Well-built, well-nourished lady, who appears slightly confused. She was oriented to time, place, and person. CHEST: Clear vesicular breathing. CARDIOVASCULAR: S1 and S2 heard. No murmurs. ABDOMEN: Soft. NEUROLOGICAL: Higher intellectual function. Normal orientation to time, place, and person, but some confusion. Cranial nerves, pupils 3 mm reactive bilaterally. Sensory examination of the face was normal bilaterally. She had mild flattening of the nasolabial fold on the left side. Normal hearing to finger rub bilaterally. Tongue midline. No atrophy noted. Normal elevation of palate. Motor examination, bulk normal, tone normal. Strength 5/5 in upper and lower extremities in iliopsoas, hamstrings, quadriceps, ankle dorsiflexion, plantar flexion, deltoid, biceps, triceps, wrist extension and flexion, finger extension and flexion bilaterally. Deep tendon reflexes were 1+ in upper extremities, 2+ in lower extremities. Cerebellar, mild cerebellar dysfunction in the left upper extremity and the sensory was normal bilaterally in both upper and lower extremities. LABORATORY WORKUP: White count 7.9, hemoglobin 13.3, hematocrit 40.6, platelets 220. Chemistry; sodium 133, potassium 4, chloride 97, BUN 13, creatinine was 1.35, and glucose on arrival was 643. Current glucose levels are at 404. Her coagulation profile, PT 12.4, INR was 0.9, PTT 28.5. CT angiogram with [place] with and without contrast showed no evidence of significant stenosis in cervical carotid artery and unremarkable CT angiogram. MRI was just reported at the time of this dictation and her MRI does not show any acute infarct and she does have moderate chronic ischemic disease of cerebral white matter. IMPRESSION: The patient is a 63-year-old lady with risk factors of hypertension and hypercholesterolemia. She presents with sudden onset of dizziness and was brought in with confusion. At this time during examination as well, she appears mildly confused and she has been running high blood glucose levels throughout this admission and her blood glucose at the time of our evaluation was still in the 400. Her examination did show mild cerebellar dysfunction on the left side and her diagnosis is most consistent with hypoglycemic events with mild neurological deficits. Job ID: [id number]
[2018-10-21] MEDS ORDERED: NIFEdipine XL 30 MG TAB PO SCH (13:45)
[2018-10-21] MEDS ORDERED: NIFEdipine XL 60 MG TAB PO SCH (13:45)
[2018-10-21] MEDS: Sodium Chloride 0.9% 1,000 ML IV SCH (14:24)
--- NOTE | 2018-10-21 14:39 | PRG ---
DATE OF SERVICE: 10/21/2018 SUBJECTIVE: Ms. Marcos is a pleasant 63-year-old female with past medical history significant for type 2 diabetes mellitus, hypertension, hyperlipidemia, who presented to the hospital with an episode of dizziness along with right facial droop. The patient has been admitted for CVA rule out. Her presenting symptoms have largely resolved. She denies any slurred speech, chest pain, or shortness of breath. The patient has been seen in consultation with Neurology as well. The patient has no specific complaints at this time. OBJECTIVE: VITAL SIGNS: Blood pressure 190/84, pulse 64, respirations 16, O2 saturation 93% on room air, temperature 98.6. GENERAL: The patient is a mildly obese female, sitting up in bed, eating lunch, in no acute distress, family at bedside. HEENT: Head is atraumatic and normocephalic. NECK: Trachea is midline. No JVD. No carotid bruits. CV: S1 and S2. Regular rate and rhythm. Soft systolic murmur, grade 1/6. LUNGS: Regular respiratory rate and pattern. Clear to auscultation bilaterally. ABDOMEN: Positive bowel sounds. Soft, nontender. EXTREMITIES: No edema. NEUROLOGIC: The patient's cranial nerves 2 through 12 are grossly intact, she does have some mild right-sided drift of the right upper and right lower extremity. PSYCHIATRIC: The patient is alert and oriented x3. She has appropriate affect and demeanor. LABORATORY DATA: White blood cell count 7.9, hemoglobin 13.3, hematocrit 40.6, platelet count is 220. Troponin negative x3. Sodium 133, potassium 4.0, creatinine 1.35. Cholesterol 207, LDL 126, HDL 56. ASSESSMENT: 1. Mild neurological and cognitive deficit in the setting of hyperglycemia and hypertension, MRI negative for acute cerebrovascular accident. 2. Malignant hypertension. 3. Uncontrolled diabetes mellitus. 4. Acute renal insufficiency, creatinine 1.35, baseline is normal. 5. Hyperlipidemia. PLAN: We will add daily aspirin along with the patient's statin. We will continue aggressive blood glucose control with sliding scale, blood sugars have trended down from 600 down to the 200s today. Regarding her blood pressure, we will continue her home dose of lisinopril-hydrochlorothiazide, and add nifedipine 30 mg daily. We will add p.r.n. hydralazine and labetalol as needed. The patient's blood pressure will need to trend down prior to safe discharge. We will also add gentle IV hydration and recheck metabolic profile. The patient has been counseled extensively on the importance of controlling her diabetes and taking her medications as prescribed. Job ID: [id number]
[2018-10-21] MEDS ORDERED: Atorvastatin Calcium 20 MG TAB PO SCH (21:00)
[2018-10-21] MEDS ORDERED: Insulin Glargine 15 UNITS in Pre-Filled Syringe 1 EACH SC SCH (21:00)
[2018-10-22] MEDS: Sodium Chloride 0.9% 1,000 ML IV SCH (01:30)
[2018-10-22 05:53] LABS: Anion Gap 12 mmol/L (10-20); BUN (Urea Nitrogen) 7 mg/dL (9.8-20.1); Calc. Creatinine Clearance 87 mL/min (70-130); Calcium 8.4 mg/dL (7.8-10.44); Carbon Dioxide 23 mmol/L (23-31); Chloride 104 mmol/L (98-107); Estimated GFR-MDRD Greater than 90; Glucose 325 mg/dL (80-115); Potassium 3.6 mmol/L (3.5-5.1); Sodium 135 mmol/L (136-145)
[2018-10-22 07:46] VITALS: BP 158/71; TEMP 98.1
[2018-10-22] MEDS: Lisinopril/Hydrochlorothiazide 20 mg/12.5 mg Tablet PO SCH (07:58)
[2018-10-22] MEDS ORDERED: NIFEdipine XL 30 MG TAB PO SCH (09:00)
[2018-10-22] MEDS ORDERED: Aspirin 81 mg Enteric Coated Tablet PO SCH (09:00)
--- NOTE | 2018-10-22 20:21 | DIS ---
DATE OF ADMISSION: 10/20/2018 DATE OF DISCHARGE: 10/22/2018 CHIEF COMPLAINT: On admission: Confusion, right-sided facial droop. DISCHARGE DIAGNOSES: 1. Mild neurological and cognitive defect in the setting of hyperglycemia and hypertension, MRI negative for acute cerebrovascular accident. 2. Malignant hypertension, now controlled. 3. Uncontrolled type 2 diabetes mellitus. 4. Acute renal insufficiency on presentation with creatinine 1.35, creatinine improved to 0.77. 5. Hyperlipidemia. BRIEF HOSPITAL COURSE: The patient is a pleasant 63-year-old female with past medical history significant for type 2 diabetes mellitus, hypertension, and some known noncompliance with her medications, who presented to the hospital after an episode of confusion, slurred speech, and right facial droop. The patient was at a family reunion, was somewhat noncompliant with her diet, eating cookies and cakes, and did not take her insulin. Family members noticed the confusion and slurred speech and called EMS. She did have some right facial droop in the ambulance that family noticed, which was resolved by the time she reached the hospital. Her blood sugar was 600 on arrival. There was no evidence of diabetic ketoacidosis. She was admitted for CVA rule out, and Neurology was consulted. MRI of the brain was negative for any acute infarct. Dr. Randall of Neurology was consulted and recommended aspirin and statin. She was given gentle IV fluid resuscitation, and had improvement in her renal function back to baseline. The patient's blood pressure was significantly elevated at 190s to 200s on arrival. She was reinstated on her lisinopril, and nifedipine was added. Blood pressures have trended down nicely to the 140s and 150s. She has tolerated her medications well. She was seen by Physical Therapy who is recommending no outpatient therapy. Her presenting symptoms have resolved. She has ambulated without issue. DISCHARGE DISPOSITION: Home. DISCHARGE CONDITION: Stable. DISCHARGE INSTRUCTIONS AND FOLLOWUP: The patient will follow up with her primary care physician, Dr. Medeiros in the next week or two. She has been counseled extensively on the importance of taking her medication as prescribed, and carefully controlling her diabetes, along with adhering to a diabetic diet. I have counseled her extensively also on aggressive risk factor modification, and controlling her blood pressure. She is to take her blood pressure medications as prescribed. New medication will be nifedipine extended release 30 mg daily. She will also start an aspirin regimen with aspirin 81 mg daily, which she was previously not taking. She will continue her statin. The patient will be discharged to home in good condition today. Job ID: [id number]
== END 2018-10-22 10:32 | disposition home or self-care (01) ==
LOC: ERS 21:27 → 2SE 23:04
PROVIDERS: ADMIT Hospitalist; ATTEND Hospitalist
DX: E11.65 Type 2 diabetes mellitus with hyperglycemia (principal); I16.1 Hypertensive emergency; N28.9 Disorder of kidney and ureter, unspecified; E78.5 Hyperlipidemia, unspecified; G93.40 Encephalopathy, unspecified; E78.00 Pure hypercholesterolemia, unspecified; Z91.14 Patient's other noncompliance with medication regimen; Z79.4 Long term (current) use of insulin; Z79.899 Other long term (current) drug therapy
CPT/HCPCS: 70450; 70496; 70498; 70551; 71045; 80048; 80053; 80061; 81003; 82010; 82330; 82435; 82550; 82803; 82962 ×3; 83735; 84100; 84132; 84295; 84484 ×3; 85014; 85025; 85610; 85730; 93005; 93306; 96361 ×3; 96374; 96375 ×2; 96376; 97116; 97139 ×5; 97530; 99291; G0378 ×2; 36415; 36416; J1815; J2405; Q9967

== ENCOUNTER 2019-03-14 08:15 | Outpatient (CLI) | payer MEDICARE ==
--- NOTE | 2019-03-14 09:18 | MMO ---
Bilateral MAMMO Bilat Screen DDI+EFREN. CLINICAL HISTORY: Patient is 64 years old and is seen for screening. The patient has no family history of breast cancer. The patient has no personal history of cancer. VIEWS: The views performed were: bilateral craniocaudal with tomosynthesis and bilateral mediolateral oblique with tomosynthesis. FILMS COMPARED: The present examination has been compared to a prior imaging study performed at [facility] on 02/08/2018. This study has been interpreted with the assistance of computer-aided detection. MAMMOGRAM FINDINGS: The breasts are almost entirely fat. There are calcifications with grouped or clustered distribution seen in the posterior outer region of the right breast. The calcifications have increased in number. In the left breast, there are no suspicious masses, calcifications or areas of architectural distortion. IMPRESSION: CALCIFICATIONS IN THE RIGHT BREAST REQUIRE ADDITIONAL EVALUATION. ADDITIONAL PROJECTIONS ARE RECOMMENDED. MAGNIFICATION VIEWS ARE RECOMMENDED. ADDITIONAL IMAGING. THE RESULTS OF THIS EXAM WERE SENT TO THE PATIENT. ACR BI-RADS Category 0 - Incomplete: Need additional imaging evaluation. [facility] will notify the patient of the need for additional imaging services. MAMMOGRAPHY NOTE: 1. A negative mammogram report should not delay a biopsy if a dominant of clinically suspicious mass is present. 2. Approximately 10% to 15% of breast cancers are not detected by mammography. 3. Adenosis and dense breasts may obscure an underlying neoplasm. Reported by: NATHAN GARNICA MD Electonically Signed: [id number]
--- NOTE | 2019-03-14 09:24 | BD ---
DEXA BONE DENSITY EXAM: COMPARISON: None. HISTORY: A 64-year-old postmenopausal female for screening. FINDINGS: Lumbar Spine: BMD (g/cm2) L1 0.725 T-Score: -2.3 L2 0.786 T-Score: -2.2 L3 0.844 T-Score: -2.2 L4 0.792 T-Score: -2.4 L1-L4 0.792 T-Score: -2.3 Femoral Neck: 0.751 T-Score: -0.9 Total Femur: 0.880 T-Score: -0.5 Impression: Osteopenia. The patient has a 10-year WHO fracture risk of a major osteoporotic fracture of 3.5% and of a hip fracture of 0.2%. POS: C
== END 2019-03-14 08:16 | disposition home or self-care (01) ==
LOC: BICMAMMO 08:15
PROVIDERS: ATTEND Family Medicine
DX: Z12.31 Encounter for screening mammogram for malignant neoplasm of breast (principal); Z13.820 Encounter for screening for osteoporosis; M85.88 Other specified disorders of bone density and structure, other site; R92.1 Mammographic calcification found on diagnostic imaging of breast
CPT/HCPCS: 77063; 77067; 77080

== ENCOUNTER 2019-03-23 08:47 | Outpatient (CLI) | payer MEDICARE ==
--- NOTE | 2019-03-23 09:31 | MMO ---
Right Breast MAMMO Unilat Diag DDI RT+EFREN. CLINICAL HISTORY: Patient is 64 years old and is seen for diagnostic exam. VIEWS: The views performed were: . FILMS COMPARED: The present examination has been compared to prior imaging studies performed at [facility] on 02/08/2018 and 03/14/2019. This study has been interpreted with the assistance of computer-aided detection. MAMMOGRAM FINDINGS: There are calcifications seen in the upper-outer region of the right breast. IMPRESSION: CALCIFICATIONS IN THE RIGHT BREAST ARE SUSPICIOUS. A STEREOTACTIC BREAST BIOPSY IS RECOMMENDED. FINDINGS WERE DISCUSSED WITH DR. CASEY FREEMAN'S NURSE, ON 03/23/19 AT 0928 HOURS. THE RESULTS OF THIS EXAM WERE SENT TO THE PATIENT. ACR BI-RADS Category 4 - Suspicious abnormality - biopsy should be considered MAMMOGRAPHY NOTE: 1. A negative mammogram report should not delay a biopsy if a dominant of clinically suspicious mass is present. 2. Approximately 10% to 15% of breast cancers are not detected by mammography. 3. Adenosis and dense breasts may obscure an underlying neoplasm. Reported by: ANUP HARRY MD Electonically Signed: [id number]
== END 2019-03-23 08:48 | disposition home or self-care (01) ==
LOC: BICMAMMO 08:47
PROVIDERS: ATTEND Family Medicine
DX: R92.1 Mammographic calcification found on diagnostic imaging of breast (principal)
CPT/HCPCS: 77065; G0279

== ENCOUNTER → 2019-04-03 | Day surgery (SDC) | payer MEDICARE ==
--- NOTE | 2019-04-03 08:41 | MMO ---
STEREOTACTIC GUIDED BIOPSY RIGHT BREAST MICROCALCIFICATIONS SURGICAL SPECIMEN MAMMOGRAPHY RIGHT DIAGNOSTIC MAMMOGRAM POST BIOPSY: HISTORY: Abnormal microcalcifications right breast. FINDINGS: After explaining the procedure and answering all questions, the pleomorphic microcalcification cluste r of the right breast was again visualized. Sterile technique, buffered local anesthesia, stereotactic guidance, and a lateral approach were used to carefully advance a 10-gauge vacuum needle into the cluster of microcalcifications. Position was confirmed with stereotactic imaging. A total of twelve 10-gauge specimens were obtained. Surgical specimen mammography shows calcifications in the tissue. Localization clip was placed in the biopsy bed under stereotactic guidance. Needle was removed and th e patient was eventually dismissed in good condition. Post procedure mammogram shows small pocket of gas where a portion of the microcalcifications has bee n removed. The localization clip lies immediately lateral to the biopsy site. IMPRESSION: Technically successful stereotactic guided biopsy right breast microcalcifications. Pathology is pend ing. Transcribed Date/Time: 04/03/2019 9:50 AM
== END ==
LOC: MAMMO 06:55
PROVIDERS: ATTEND Family Medicine
PROC: 0H9T3ZX Drainage of Right Breast, Percutaneous Approach, Diagnostic (ICD-10-PCS; principal; 2019-04-03)
DX: D24.1 Benign neoplasm of right breast (principal); E11.9 Type 2 diabetes mellitus without complications
CPT/HCPCS: 19081; 76098; 88305

== ENCOUNTER 2020-12-20 14:42 | Outpatient (CLI) | payer MEDICARE | END 2020-12-20 14:43 | disposition home or self-care (01) | LOC: BICMAMMO 14:42 | PROVIDERS: ATTEND Family Medicine | DX: M85.89 Other specified disorders of bone density and structure, multiple sites (principal) | CPT/HCPCS: 77080 ==

== ENCOUNTER 2021-09-29 19:32 | Inpatient (IN) | payer MEDICARE ==
[2021-09-29 20:03] LABS: Hemoglobin 10.7 g/dL (12.0-16.0); Mean Corpuscular HGB CONC 32.1 g/dL (32.0-36.0); Mean Corpuscular Hemoglobin 28.9 pg (27.0-31.0); Mean Platelet Volume 6.8 fL (7.4-10.4); Platelet Count 460 thou/uL (130-400); RBC Distribution Width 11.9 % (11.5-14.5); Red Blood Cell (RBC) Count 3.72 mill/uL (4.20-5.40); White Blood Cell (WBC) Count 22.8 thou/uL (4.8-10.8)
[2021-09-29] MEDS ORDERED: Acetaminophen 500 MG TAB ONE (20:07)
[2021-09-29 20:20] LABS: Band 7 % (5-11); Lymphocytes 5 % (21-51); MDiff Complete? YES; Monocytes 1 % (0-10); Neutrophil 87 % (42-75); Platelet Morphology Comment Appears Increased; Polychromasia SLIGHT = 2-3 cells (100X) (0-2/hpf)
[2021-09-29 20:23] LABS: ALT (SGPT) 29 U/L (8-55); AST (SGOT) 38 U/L (5-34); Albumin 3.6 g/dL (3.4-4.8); Alkaline Phosphatase 88 U/L (40-110); Anion Gap 17 mmol/L (10-20); BUN (Urea Nitrogen) 20 mg/dL (9.8-20.1); Bilirubin, Total 0.6 mg/dL (0.2-1.2); Calc. Creatinine Clearance 0 mL/min (70-130); Calcium 9.7 mg/dL (7.8-10.44); Carbon Dioxide 23 mmol/L (23-31); Chloride 98 mmol/L (98-107); Globulin 4.6 g/dL (2.4-3.5); Glucose 77 mg/dL (80-115); Protein, Total 8.2 g/dL (5.8-8.1); Sodium 134 mmol/L (136-145)
[2021-09-29] MEDS ORDERED: Morphine 4 MG/ML VIAL ONE (20:36)
[2021-09-29] MEDS ORDERED: Ondansetron PF 4 MG/2 ML Vial ONE (20:36)
[2021-09-29] MEDS ORDERED: Cefepime 2 GM VIAL ONE (20:43)
[2021-09-29] MEDS ORDERED: Vancomycin 1 GM/200 ML BAG ONE (21:18)
[2021-09-29] MEDS ORDERED: Clindamycin/D5W 600 mg/50 ml Premix Bag ONE (21:18)
[2021-09-29 23:17] LABS: Lactic Acid 1.1 mmol/L (0.5-2.2)
[2021-09-30 02:06] LABS: Bacteria/HPF 4+ HPF (None Seen); Bilirubin Negative (Negative); Blood, Urine Negative (Negative); Clarity Turbid (Clear); Glucose, Urine (Dipstick) Normal (Negative); Ketone, Urine Negative (Negative); Leukocyte 75 Leu/uL (Negative); Nitrite Negative (Negative); Protein, Urine (Dipstick) 20 mg/dL (Neg-Trace); RBC/HPF 0-3 HPF (0-3); Specific Gravity, Urine 1.013 (1.002-1.036); Squamous Epithelial 21-50 HPF (0-3); Urobilinogen Normal mg/dL (Less than 2); pH, Urine 5.5 (5.0-9.0)
[2021-09-30] MEDS ORDERED: Ondansetron ODT 4 MG TAB SL PRN (04:00)
[2021-09-30] MEDS ORDERED: Ondansetron PF 4 MG/2 ML Vial IVP PRN ×2 (04:00→10:22)
[2021-09-30 04:03] VITALS: BMI 33.6
[2021-09-30] MEDS ORDERED: Dextrose 50% Abboject 50 ML SYRINGE ONE (04:45)
[2021-09-30] MEDS: Acetaminophen 325 MG TAB PO PRN ×3 (04:46→20:29)
[2021-09-30] MEDS: Lactated Ringer's 1,000 ML IV SCH ×2 (04:46→12:32)
[2021-09-30] MEDS ORDERED: Clindamycin/D5W 600 MG in Premix Bag 1 BAG IVPB SCH (06:00)
[2021-09-30] MEDS ORDERED: Cefepime 2 GM in Sodium Chloride 0.9% 100 ML IVPB SCH (09:00)
[2021-09-30] MEDS ORDERED: Dextrose 5% in Water 1,000 ML IV PRN (10:22)
[2021-09-30] MEDS ORDERED: Insulin Regular 300 UNITS/3 ML VIAL SC PRN (10:22)
[2021-09-30] MEDS ORDERED: Vancomycin 1 GM in Premix Bag 1 BAG IVPB SCH (10:30)
[2021-09-30] MEDS: Dextrose 50% Abboject 50 ML SYRINGE SLOW IVP PRN ×2 (11:17→16:40)
[2021-09-30] MEDS: Sodium Chloride 0.9% 1,000 ML IV SCH (12:26)
[2021-09-30] MEDS: Clindamycin/D5W 900 MG in Premix Bag 1 BAG IVPB SCH ×2 (13:33→22:08)
[2021-09-30] MEDS: VANCOMYCIN 1.25 GM/250 ML BAG 1.25 GM in Premix Bag 1 BAG IVPB SCH (14:12)
[2021-09-30] MEDS: Morphine 2 MG/ML VIAL SLOW IVP PRN (14:12)
[2021-09-30] MEDS: Acetaminophen 650 MG Suppository PR PRN (16:51)
[2021-09-30 18:09] LABS: Hemoglobin 9.7 g/dL (12.0-16.0); Mean Corpuscular HGB CONC 31.7 g/dL (32.0-36.0); Mean Corpuscular Hemoglobin 28.7 pg (27.0-31.0); Mean Corpuscular Volume 90.4 fL (78.0-98.0); Mean Platelet Volume 6.8 fL (7.4-10.4); Platelet Count 377 thou/uL (130-400); Red Blood Cell (RBC) Count 3.36 mill/uL (4.20-5.40); White Blood Cell (WBC) Count 14.3 thou/uL (4.8-10.8)
[2021-09-30 18:20] LABS: Lactic Acid 2.2 mmol/L (0.5-2.2)
[2021-09-30 18:24] LABS: ALT (SGPT) 38 U/L (8-55); AST (SGOT) 47 U/L (5-34); Albumin 2.8 g/dL (3.4-4.8); Alkaline Phosphatase 76 U/L (40-110); Anion Gap 11 mmol/L (10-20); BUN (Urea Nitrogen) 12 mg/dL (9.8-20.1); Bilirubin, Total 0.6 mg/dL (0.2-1.2); Calc. Creatinine Clearance 66 mL/min (70-130); Calcium 8.7 mg/dL (7.8-10.44); Carbon Dioxide 22 mmol/L (23-31); Chloride 103 mmol/L (98-107); Globulin 3.5 g/dL (2.4-3.5); Glucose 141 mg/dL (80-115); Potassium 4.2 mmol/L (3.5-5.1); Protein, Total 6.3 g/dL (5.8-8.1); Sodium 132 mmol/L (136-145)
[2021-09-30 19:47] LABS: Band 16 % (5-11); Eosinophils 2 % (0-10); Lymphocytes 6 % (21-51); MDiff Complete? YES; Monocytes 2 % (0-10); Neutrophil 73 % (42-75); Platelet Morphology Comment Appears Adequate; Polychromasia SLIGHT = 2-3 cells (100X) (0-2/hpf); Reactive Lymphocytes 1 % (0-10)
[2021-09-30] MEDS: Cefepime 2 GM in Sodium Chloride 0.9% 100 ML IVPB SCH (20:32)
[2021-10-01] MEDS: Sodium Chloride 0.9% 1,000 ML IV SCH ×2 (01:56→14:50)
[2021-10-01] MEDS: Acetaminophen 325 MG TAB PO PRN ×2 (04:15→14:05)
[2021-10-01] MEDS: Clindamycin/D5W 900 MG in Premix Bag 1 BAG IVPB SCH ×3 (05:12→23:41)
[2021-10-01 07:57] LABS: Anion Gap 14 mmol/L (10-20); BUN (Urea Nitrogen) 11 mg/dL (9.8-20.1); Calc. Creatinine Clearance 70 mL/min (70-130); Calcium 8.6 mg/dL (7.8-10.44); Carbon Dioxide 19 mmol/L (23-31); Chloride 106 mmol/L (98-107); Glucose 103 mg/dL (80-115); Potassium 4.2 mmol/L (3.5-5.1); Sodium 135 mmol/L (136-145)
[2021-10-01] MEDS: Enoxaparin Sodium 40 MG/0.4 ML SYRINGE SC SCH (08:46)
[2021-10-01] MEDS: Cefepime 2 GM in Sodium Chloride 0.9% 100 ML IVPB SCH ×2 (08:46→22:04)
[2021-10-01 11:45] LABS: Hemoglobin 10.7 g/dL (12.0-16.0); Mean Corpuscular HGB CONC 31.2 g/dL (32.0-36.0); Mean Corpuscular Hemoglobin 28.3 pg (27.0-31.0); Mean Corpuscular Volume 90.5 fL (78.0-98.0); Mean Platelet Volume 8.1 fL (7.4-10.4); Platelet Count 390 thou/uL (130-400); RBC Distribution Width 12.5 % (11.5-14.5); Red Blood Cell (RBC) Count 3.79 mill/uL (4.20-5.40); White Blood Cell (WBC) Count 16.8 thou/uL (4.8-10.8)
[2021-10-01 11:46] LABS: Band 44 % (5-11); Eosinophils 2 % (0-10); Lymphocytes 2 % (21-51); MDiff Complete? YES; Monocytes 2 % (0-10); Neutrophil 50 % (42-75); Platelet Morphology Comment Appears Adequate; RBC Morphology Normal; Vacuoles SLIGHT
[2021-10-01] MEDS: VANCOMYCIN 1.25 GM/250 ML BAG 1.25 GM in Premix Bag 1 BAG IVPB SCH (12:40)
[2021-10-01] MEDS: Morphine 2 MG/ML VIAL SLOW IVP PRN (16:31)
[2021-10-01] MEDS ORDERED: Ketorolac Tromethamine 30 MG/ML VIAL IVP SCH (17:15)
[2021-10-01] MEDS: Dextrose 5 % And 0.9 % NaCl 1,000 ML IV SCH (18:18)
[2021-10-01] MEDS: Ketorolac Tromethamine 30 MG/ML VIAL IVP PRN (23:44)
[2021-10-02] MEDS: Acetaminophen 650 MG Suppository PR PRN (03:11)
[2021-10-02] MEDS: Clindamycin/D5W 900 MG in Premix Bag 1 BAG IVPB SCH ×3 (05:25→22:28)
[2021-10-02] MEDS: Dextrose 5 % And 0.9 % NaCl 1,000 ML IV SCH ×2 (07:07→20:00)
[2021-10-02] MEDS: Cefepime 2 GM in Sodium Chloride 0.9% 100 ML IVPB SCH ×2 (07:29→21:19)
[2021-10-02] MEDS: Enoxaparin Sodium 40 MG/0.4 ML SYRINGE SC SCH (07:29)
[2021-10-02] MEDS ORDERED: Midazolam HCl 2 mg/2 ml Vial ONE (08:32)
[2021-10-02] MEDS ORDERED: PROPOFOL 20 ML ONE (08:35)
[2021-10-02] MEDS ORDERED: fentaNYL Citrate/PF 100 MCG/2 ML SYRINGE ONE (08:35)
[2021-10-02] MEDS ORDERED: Ondansetron PF 4 MG/2 ML Vial ONE ×2 (08:35→08:47)
[2021-10-02] MEDS ORDERED: Famotidine/PF 20 mg/2ml Vial ONE (08:36)
[2021-10-02] MEDS ORDERED: PROPOFOL 200 MG/20 ML VIAL ONE (08:47)
[2021-10-02] MEDS ORDERED: Lidocaine 1% PF 5 ML VIAL ONE (08:47)
[2021-10-02] MEDS ORDERED: PHENYLEPHRINE-NS 100 MCG/ML 10 ML SYRINGE ONE (08:47)
[2021-10-02] MEDS ORDERED: Metoclopramide HCl 10 MG/2 ML VIAL ONE (08:47)
[2021-10-02] MEDS ORDERED: Lidocaine 1% w/Epinephrine 1:100K 30 ML VIAL ONE (08:59)
[2021-10-02] MEDS ORDERED: Bupivacaine PF 0.5% 30 ML VIAL ONE (08:59)
[2021-10-02] MEDS ORDERED: Ondansetron HCl/PF 4 MG/2 ML Vial IVP PRN (09:37)
[2021-10-02] MEDS ORDERED: Promethazine HCl 25 MG/ML VIAL IM PRN (09:37)
[2021-10-02] MEDS ORDERED: Promethazine HCl 25 MG/ML VIAL IVPB PRN (09:37)
[2021-10-02 12:48] LABS: Vancomycin, Trough 10.3 ug/mL
[2021-10-02 12:49] LABS: Anion Gap 13 mmol/L (10-20); BUN (Urea Nitrogen) 15 mg/dL (9.8-20.1); Calc. Creatinine Clearance 76 mL/min (70-130); Calcium 8.1 mg/dL (7.8-10.44); Carbon Dioxide 21 mmol/L (23-31); Chloride 107 mmol/L (98-107); Glucose 163 mg/dL (80-115); Potassium 4.4 mmol/L (3.5-5.1); Sodium 137 mmol/L (136-145)
[2021-10-02] MEDS: Vancomycin 1.5 GRAM/300 ML BAG 1.5 GM in Premix Bag 300 BAG IVPB SCH (13:21)
[2021-10-02] MEDS: HYDROcodone/Acetaminophen 5/325 mg Tablet PO PRN (13:30)
[2021-10-02] MEDS: VANCOMYCIN 1.25 GM/250 ML BAG 1.25 GM in Premix Bag 1 BAG IVPB SCH (13:30)
[2021-10-03] MEDS: Dextrose 5 % And 0.9 % NaCl 1,000 ML IV SCH (03:29)
[2021-10-03] MEDS: Acetaminophen 325 MG TAB PO PRN ×2 (03:41→12:24)
[2021-10-03] MEDS: Clindamycin/D5W 900 MG in Premix Bag 1 BAG IVPB SCH ×3 (05:59→20:53)
[2021-10-03] MEDS: Cefepime 2 GM in Sodium Chloride 0.9% 100 ML IVPB SCH ×2 (09:19→20:52)
[2021-10-03] MEDS: Polyethylene Glycol 3350 17 GM Packet PO SCH (09:19)
[2021-10-03] MEDS: Enoxaparin Sodium 40 MG/0.4 ML SYRINGE SC SCH (09:20)
[2021-10-03] MEDS: HumaLOG 300 UNITS/3 ML VIAL SC PRN (12:26)
[2021-10-03] MEDS: HYDROcodone/Acetaminophen 5/325 mg Tablet PO PRN ×2 (13:23→21:01)
[2021-10-03] MEDS: Vancomycin 1.5 GRAM/300 ML BAG 1.5 GM in Premix Bag 300 BAG IVPB SCH (13:26)
[2021-10-04] MEDS: Clindamycin/D5W 900 MG in Premix Bag 1 BAG IVPB SCH ×3 (06:00→22:11)
[2021-10-04] MEDS: Polyethylene Glycol 3350 17 GM Packet PO SCH (08:25)
[2021-10-04] MEDS: Enoxaparin Sodium 40 MG/0.4 ML SYRINGE SC SCH (08:25)
[2021-10-04] MEDS: Cefepime 2 GM in Sodium Chloride 0.9% 100 ML IVPB SCH ×2 (08:26→20:17)
[2021-10-04] MEDS: Morphine 2 MG/ML VIAL SLOW IVP PRN (11:29)
[2021-10-04] MEDS: HumaLOG 300 UNITS/3 ML VIAL SC PRN (12:15)
[2021-10-04 14:20] LABS: Vancomycin, Trough 16.1 ug/mL
[2021-10-04] MEDS: Vancomycin 1.5 GRAM/300 ML BAG 1.5 GM in Premix Bag 300 BAG IVPB SCH (14:33)
[2021-10-04] MEDS: Ketorolac Tromethamine 30 MG/ML VIAL IVP PRN ×2 (14:40→20:15)
[2021-10-04] MEDS: Lisinopril 20 MG TAB PO SCH (20:17)
[2021-10-05] MEDS: Clindamycin/D5W 900 MG in Premix Bag 1 BAG IVPB SCH (05:43)
[2021-10-05] MEDS: Glimepiride 4 MG TAB PO SCH (08:38)
[2021-10-05] MEDS: Lisinopril 20 MG TAB PO SCH ×2 (08:38→22:37)
[2021-10-05] MEDS: Pioglitazone HCl 15 MG TAB PO SCH (08:38)
[2021-10-05] MEDS: Polyethylene Glycol 3350 17 GM Packet PO SCH (08:40)
[2021-10-05] MEDS: Cefepime 2 GM in Sodium Chloride 0.9% 100 ML IVPB SCH ×2 (08:40→10:53)
[2021-10-05] MEDS: Enoxaparin Sodium 40 MG/0.4 ML SYRINGE SC SCH (08:40)
[2021-10-05] MEDS ORDERED: NIFEdipine XL 30 MG TAB PO SCH (14:45)
[2021-10-05] MEDS: HYDROcodone/Acetaminophen 5/325 mg Tablet PO PRN ×2 (16:27→22:38)
[2021-10-05] MEDS: Amoxicillin/Potassium Clav 500 MG TAB PO SCH (22:37)
[2021-10-05] MEDS: Sulfameth/Trimethoprim DS 800-160mg TAB PO SCH (22:39)
[2021-10-06] MEDS: Polyethylene Glycol 3350 17 GM Packet PO SCH (07:39)
[2021-10-06 07:53] VITALS: TEMP 98.2
[2021-10-06] MEDS: Enoxaparin Sodium 40 MG/0.4 ML SYRINGE SC SCH (08:19)
[2021-10-06] MEDS: Glimepiride 4 MG TAB PO SCH (08:20)
[2021-10-06] MEDS: Amoxicillin/Potassium Clav 500 MG TAB PO SCH (08:21)
[2021-10-06] MEDS: Pioglitazone HCl 15 MG TAB PO SCH (08:21)
[2021-10-06] MEDS: HYDROcodone/Acetaminophen 5/325 mg Tablet PO PRN ×2 (08:21→09:45)
[2021-10-06] MEDS: Lisinopril 20 MG TAB PO SCH (08:22)
[2021-10-06] MEDS: Sulfameth/Trimethoprim DS 800-160mg TAB PO SCH (08:22)
[2021-10-06] MEDS ORDERED: NIFEdipine XL 30 MG TAB PO SCH ×2 (09:00)
[2021-10-06 13:24] VITALS: BP 149/78
== END 2021-10-06 13:23 | disposition home or self-care (01) | DRG 854 ==
LOC: ERS 19:32 → T4-B 09-30 02:35
PROVIDERS: ADMIT Internal Medicine; ATTEND Internal Medicine
PROC: 3E03329 Introduction of Other Anti-infective into Peripheral Vein, Percutaneous Approach (ICD-10-PCS; 2021-09-30)
PROC: 0JB60ZZ Excision of Chest Subcutaneous Tissue and Fascia, Open Approach (ICD-10-PCS; principal; 2021-10-02)
DX: A41.9 Sepsis, unspecified organism (principal); N17.9 Acute kidney failure, unspecified; E11.52 Type 2 diabetes mellitus with diabetic peripheral angiopathy with gangrene; Z20.822 Contact with and (suspected) exposure to COVID-19; R65.20 Severe sepsis without septic shock; E78.5 Hyperlipidemia, unspecified; N61.1 Abscess of the breast and nipple; F41.9 Anxiety disorder, unspecified; E78.00 Pure hypercholesterolemia, unspecified; Z98.42 Cataract extraction status, left eye; Z98.41 Cataract extraction status, right eye; Z28.21 Immunization not carried out because of patient refusal; Z90.710 Acquired absence of both cervix and uterus; Z79.899 Other long term (current) drug therapy; Z79.4 Long term (current) use of insulin; Z79.84 Long term (current) use of oral hypoglycemic drugs; Z79.82 Long term (current) use of aspirin
CPT/HCPCS: 36415; 36416; 80048; 80053; 80202; 81003; 81015; 83605; 85025; 87040; 87070; 87086; 87205; 88305; 96365; 96375; J0692; J1650; J1815; J1885; J2250; J2270; J2405; J2704; J2765; J3370; J3490; J7042; J7050; J7120; J7999; S0020; S0028; U0003; U0005

== ENCOUNTER 2022-05-11 15:03 | Emergency (ER) | payer MEDICARE | END 2022-05-11 15:50 | disposition left against medical advice (07) | LOC: ERS 15:03 | DX: Z53.29 Procedure and treatment not carried out because of patient's decision for other reasons (principal) ==

== ENCOUNTER 2022-10-02 12:03 | Outpatient (CLI) | payer MEDICARE | END 2022-10-02 12:04 | disposition home or self-care (01) | LOC: BICMAMMO 12:03 | PROVIDERS: ATTEND Family Medicine | DX: Z12.31 Encounter for screening mammogram for malignant neoplasm of breast (principal); M54.32 Sciatica, left side; M19.90 Unspecified osteoarthritis, unspecified site; M47.816 Spondylosis without myelopathy or radiculopathy, lumbar region; Z91.89 Other specified personal risk factors, not elsewhere classified | CPT/HCPCS: 72100; 77063; 77067 ==

== ENCOUNTER 2023-09-08 10:05 | Outpatient (CLI) | payer MEDICARE ==
[2023-09-08] MEDS ORDERED: Magnevist 469MG/ML 20 ML VIAL ONE (11:17)
== END 2023-09-08 10:06 | disposition home or self-care (01) ==
LOC: MRI 10:05
PROVIDERS: ATTEND Psychiatry & Neurology Neurology
DX: R41.3 Other amnesia (principal); R90.82 White matter disease, unspecified; J32.3 Chronic sphenoidal sinusitis; M87.88 Other osteonecrosis, other site; J34.2 Deviated nasal septum
CPT/HCPCS: 70553; A9579

== ENCOUNTER 2023-10-12 10:52 | Outpatient (CLI) | payer MEDICARE | END 2023-10-12 10:53 | disposition home or self-care (01) | LOC: BICMAMMO 10:52 | PROVIDERS: ATTEND Family Medicine | DX: Z12.31 Encounter for screening mammogram for malignant neoplasm of breast (principal); Z91.89 Other specified personal risk factors, not elsewhere classified | CPT/HCPCS: 77063; 77067 ==

== ENCOUNTER 2025-04-06 09:03 | Outpatient (CLI) | payer OTHER | END 2025-04-06 09:04 | disposition home or self-care (01) | LOC: BICMAMMO 09:03 | PROVIDERS: ATTEND Family Medicine | DX: Z12.31 Encounter for screening mammogram for malignant neoplasm of breast (principal); M85.89 Other specified disorders of bone density and structure, multiple sites; Z91.89 Other specified personal risk factors, not elsewhere classified | CPT/HCPCS: 77063; 77067; 77080 ==